=== PATIENT | male | born 1985 | race Caucasian/White ===

== ENCOUNTER 2021-02-07 11:35 | Emergency (ER) | payer BC ==
[2021-02-07 13:00] LABS: Absolute Lymphocytes (CBC) 0.7 K/uL (0.7-4.9); Basophils % 0.1 % (0-1.3); Hematocrit 41.8 % (36.0-45.0); Lymphocytes % 4.8 % (15.3-44.8); MPV 8.4 fL (7.6-11.3); RBC Red Blood Cell Count 4.66 M/uL (3.86-4.86)
--- NOTE | 2021-02-07 13:10 | RAD REPORT ---
EXAM DESCRIPTION: RAD - Foot Left 3 View - 02/07/2021 12:50 pm CLINICAL HISTORY: Pain;Swelling COMPARISON: No comparisons FINDINGS: No fracture, dislocation or periosteal reaction. No acute or destructive bony process. No air or foreign body in the soft tissues. Edema or contusion changes are seen in the soft tissues l ateral midfoot. IMPRESSION: Contusion or edema changes in the soft tissues lateral mid foot. No left foot bone or joint abnormality.
[2021-02-07] MEDS ORDERED: METHYLPREDNISOLONE 125 MG INJ ONE (13:14)
[2021-02-07] MEDS ORDERED: DIPHENHYDRAMINE 50 MG/ML VIAL ONE (13:15)
[2021-02-07] MEDS ORDERED: TETANUS & DIPHTHERIA TOX,ADULT 0.5 ML VIAL ONE (13:15)
[2021-02-07] MEDS ORDERED: DOXYCYCLINE 100 MG CAP PO ONE (13:15)
[2021-02-07] MEDS ORDERED: HYDROCODONE/APAP 7.5/325 MG TAB ONE (13:16)
[2021-02-07 13:25] LABS: Potassium 3.7 mmol/L (3.5-5.1)
[2021-02-07 13:52] LABS: Blood Morphology Comment NOT SEEN (NOT SEEN); Platelet Estimate ADEQ; White Blood Cell Scan OK (OK)
--- NOTE | 2021-02-07 14:44 | ER ---
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 Did not see animal/object that hurt him. Bleeding controlled with dressing in place. <1 cm laceration L outer ankle. PMS intact. Coronavirus screen: Client denies travel out of the [place] in the last 14 days. At this time, the client does not indicate any symptoms associated with coronavirus-19. Ebola Screen: Patient denies travel to an Ebola-affected area in the 21 days before illness onset. Initial Sepsis Screen: Does the patient meet any 2 criteria? No. Patient's initial sepsis screen is negative. Does the patient have a suspected source of infection? Yes: Skin breakdown/wound. Risk Assessment: Do you want to hurt yourself or someone else? Patient reports no desire to harm self or others. Onset of symptoms was February 07, 2021. 11:46 Method Of Arrival: Wheelchair ll1 11:46 Acuity: JENNIFER 4 ll1 13:05 Acuity: JENNIFER 3 iw Triage Assessment: 12:30 Injury Description: Puncture sustained to lateral aspect of left foot and left lateral zb ankle is superficial, was sustained 2-4 hours ago. 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 cuff repair; ll1 - Immunization history:: Client reports receiving the 2nd dose of the Covid vaccine, Last tetanus immunization: unknown, Flu vaccine is up to date. - Social history:: Smoking status: Patient denies any tobacco usage or history of. Screenin:17 Abuse screen: Denies threats or abuse. Denies injuries from another. Nutritional zb screening: No deficits noted. Tuberculosis screening: No symptoms or risk factors identified. Fall Risk None identified. Assessment: 13:15 General: Appears in no apparent distress. uncomfortable, Behavior is anxious. Pain: zb Complains of pain in left foot, left lateral ankle and lateral aspect of left foot Pain currently is 4 out of 10 on a pain scale. Quality of pain is described as aching, crampy, Pain began 3 hours ago. Is continuous, Alleviated by nothing. Noted to be shaking. Neuro: Level of Consciousness is awake, alert, obeys commands, Oriented to person, place, time. Cardiovascular: Patient's skin is warm and dry. Respiratory: Airway is patent Respiratory effort is even, unlabored, Respiratory pattern is regular, symmetrical. GI: Abdomen is flat. Derm: Skin is healthy with good turgor, Skin is dry, Skin is normal, Skin temperature is warm. Derm: Wound noted left lateral ankle Wound is mild bleeding noted. Musculoskeletal: Range of motion: intact in all extremities, Swelling present in left lateral ankle. 13:18 Reassessment: left foot currently soaking in beta basin. zb 14:00 Reassessment: patient appears to be sleeping. pain decreased. zb 14:58 Reassessment: Patient appears in no apparent distress at this time. Patient and/or zb family updated on plan of care and expected duration. Pain level reassessed. Patient is alert, oriented x 3, equal unlabored respirations, skin warm/dry/pink. 14:59 Reassessment: d/c pending IV fluids. zb Vital Signs: 11:46 BP 137 / 74; Pulse 60; Resp 17; Temp 98.6; Pulse Ox 100% ; Weight 106.59 kg; Height 6 ll1 ft. 1 in. (185.42 cm); Pain 4/10; 13:17 BP 142 / 72; Pulse 63; Resp 16; Pulse Ox 100% ; zb 14:58 BP 124 / 66; Pulse 65; Resp 16; Pulse Ox 100% on R/A; zb 11:46 Body Mass Index 31.00 (106.59 kg, 185.42 cm) ll1 ED Course: 11:37 Patient arrived in ED. ds1 11:46 Arm band placed on. ll1 11:48 Triage completed. ll1 12:07 Ifeanyi Grajeda MD is Attending Physician. kdr 12:39 Melody Palomares RN is Primary Nurse. zb 12:52 Foot Left 3 View XRAY In Process Unspecified. EDMS 13:17 Initial lab(s) drawn, by me, sent to lab. Inserted saline lock: 20 gauge in right zb antecubital area, using aseptic technique. Blood collected. 13:18 Patient has correct armband on for positive identification. Pulse ox on. NIBP on. Door zb closed. Noise minimized. 15:30 No provider procedures requiring assistance completed. IV discontinued, intact, zb bleeding controlled, No redness/swelling at site. Pressure dressing applied. 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 Exp: zb 01/04/2022. Lot #: [id number]. } Route: IM; Site: right deltoid; 14:57 Follow up: Response: No adverse reaction zb 14:57 Drug: Clindamycin 900 mg Route: IVPB; Infused Over: 30 mins; Site: right antecubital; zb 15:52 Follow up: Response: No adverse reaction; IV Status: Completed infusion; IV Intake: zb 100ml Intake: 15:52 IV: 100ml; Total: 100ml. zb Outcome: 14:43 Discharge ordered by . kdr 15:30 Discharged to home ambulatory. zb 15:30 Condition: stable 15:30 Discharge instructions given to patient, Instructed on discharge instructions, follow up and referral plans. medication usage, Demonstrated understanding of instructions, follow-up care, medications, Prescriptions given X 2. 15:40 Patient left the ED. iw Signatures: Dispatcher [employer] EDMS Ifeanyi Grajeda MD MD kdr [place], Anay ds1 Radha Munoz RN RN iw Lis Espino RN RN ll1 Melody Palomares RN RN zb
--- NOTE | 2021-02-07 14:44 | EDPHYS ---
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 cuff repair; ll1 - Immunization history:: Client reports receiving the 2nd dose of the Covid vaccine, Last tetanus immunization: unknown, Flu vaccine is up to date. - Social history:: Smoking status: Patient denies any tobacco usage or history of. Vital Signs: 11:46 BP 137 / 74; Pulse 60; Resp 17; Temp 98.6; Pulse Ox 100% ; Weight 106.59 kg; Height 6 ll1 ft. 1 in. (185.42 cm); Pain 4/10; 13:17 BP 142 / 72; Pulse 63; Resp 16; Pulse Ox 100% ; zb 14:58 BP 124 / 66; Pulse 65; Resp 16; Pulse Ox 100% on R/A; zb 11:46 Body Mass Index 31.00 (106.59 kg, 185.42 cm) ll1 MDM: 14:43 Patient medically screened. kdr 02/07 12:29 Order name: CBC with Diff kdr 02/07 12:29 Order name: Chem 7 kdr 02/07 12:30 Order name: CBC with Automated Diff; Complete Time: 14:10 EDAL 02/07 12:30 Order name: Basic Metabolic Panel; Complete Time: 14:10 EDAL 02/07 13:03 Order name: CBC Smear Scan; Complete Time: 14:10 EDAL 02/07 12:30 Order name: Foot Left 3 View XRAY; Complete Time: 13:19 kdr 02/07 12:31 Order name: Misc. 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 Exp: zb 01/04/2022. Lot #: [id number]. } Route: IM; Site: right deltoid; 14:57 Follow up: Response: No adverse reaction zb 14:57 Drug: Clindamycin 900 mg Route: IVPB; Infused Over: 30 mins; Site: right antecubital; zb 15:52 Follow up: Response: No adverse reaction; IV Status: Completed infusion; IV Intake: zb 100ml Disposition Summary: 02/07/21 14:43 Discharge Ordered Location: Home kdr Problem: new kdr Symptoms: have improved kdr Condition: Stable kdr Diagnosis - Puncture wound without foreign body, left ankle, initial encounter kdr Followup: kdr - With: Private Physician - When: 2 - 3 days - Reason: If symptoms return, Further diagnostic work-up, Recheck today's complaints, Continuance of care, Re-evaluation by your physician Discharge Instructions: - Discharge Summary Sheet kdr - Puncture Wound kdr - Marine Life Injury, [id number] kdr Forms: - Medication Reconciliation Form kdr - Thank You Letter kdr - Antibiotic Education kdr - Prescription Opioid Use kdr - Work release form eb Prescriptions: - acetaminophen-codeine 300-15 mg Oral tablet - take 2 tablet by ORAL route every 4 hours Take one or two tablets as needed for kdr pain every 4-6 hours; 12 tablet; Refills: 0, Product Selection Permitted - Doxycycline Monohydrate 100 mg Oral Tablet - take 1 tablet by ORAL route every 12 hours for 10 days; 20 tablet; Refills: 0, kdr Product Selection Permitted Signatures: Dispatcher [employer] EDMS Ifeanyi Grajeda MD MD kdr Lis Espino RN RN ll1 Melody Palomares RN RN zb Corrections: (The following items were deleted from the chart) 12:30 12:09 Ankle Left 3 View+[email or web address] ordered. EDMS EDMS 12:55 12:30 Foot Left 3 View ordered. EDMS EDMS
[2021-02-07] MEDS ORDERED: CLINDAMYCIN 900MG/D5W 900 MG/50 ML IVPB IV ONE (15:12)
[2021-02-07 16:15] VITALS: TEMP 98.6; O2SAT 100
[2021-02-07 16:18] VITALS: BP 124/66
== END 2021-02-07 15:40 | disposition home or self-care (01) ==
LOC: ER 11:35 → EDSEX 11:35 → ER 15:40
DX: S91.032A Puncture wound without foreign body, left ankle, initial encounter (principal); Z23 Encounter for immunization; X58.XXXA Exposure to other specified factors, initial encounter
CPT/HCPCS: 96365; 85025; 80048; 36415; 73630; 90471; 90714; 96375; 99284; J1200; J2930